=== PATIENT | male | born 1990 | race Caucasian/White ===

== ENCOUNTER 2019-03-20 13:04 | Emergency (ER) | payer OTHER ==
[2019-03-20 13:23] VITALS: RESP 16; O2SAT 98
[2019-03-20] MEDS: Naproxen 500 MG TAB PO ONE (14:18)
[2019-03-20] MEDS ORDERED: Naproxen 500 MG TAB PO ONE (14:18)
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
[2019-03-20 16:37] VITALS: BP 116/64; PULSE 66; TEMP 97.8
== END 2019-03-20 16:34 | disposition home or self-care (01) ==
LOC: H.ER 13:04
DX: M54.9 Dorsalgia, unspecified (principal); V43.52XA Car driver injured in collision with other type car in traffic accident, initial encounter; Y92.410 Unspecified street and highway as the place of occurrence of the external cause